=== PATIENT | male | born 1990 | race Caucasian/White ===

== ENCOUNTER 2018-04-01 15:42 | Emergency (ER) | payer SELFPAY ==
[2018-04-01 15:47] VITALS: BP 125/74
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
== END 2018-04-01 16:17 | disposition home or self-care (01) ==
DX: H00.035 Abscess of left lower eyelid (principal); H00.015 Hordeolum externum left lower eyelid; F17.200 Nicotine dependence, unspecified, uncomplicated